=== PATIENT | male | born 1950 | race African-American/Black ===

== ENCOUNTER 2024-12-30 12:41 | Outpatient (CLI) | payer MEDICARE, SELFPAY ==
--- NOTE | ~2024-12-30 | PE_ITS ---
EXAMINATION: PET_PETPSMAST_PT DATE: 12/30/2024 14:41 INDICATION: Prostate cancer TECHNIQUE: 5.025 mCi of Illucix Ga-68([id number]) was administered i.v. Low dose computed denver graphy (CT) images were acquired from the base of the brain to the base of the brain to the proximal thighs for attenuation correction and anatomic localization. Positron emission tomography (PET) image s were acquired in the same distribution beginning 53 minutes after injection. Images including fused PET/CT images were reconstructed in axial, coronal, and sagittal planes. Automated exposure control technique was employed. The dose-length product was 1261.94mGy-cm. COMPARISON: None FINDINGS: Head/neck: Typical pattern of symmetric physiologic increased activity in the lacrimal, parotid and submandibula r glands as well as along the mucosa of the nasal and oral cavities, pharynx and hypopharynx. No path ologically enlarged cervical lymphadenopathy or suspicious foci of increased uptake in the visualized head or neck. Chest: Mild discoid atelectasis in the right middle lobe. 6 mm flat intrafissural lymph node along the right major fissure without abnormal uptake. No other suspicious pulmonary nodules, pneumonia, pulmonary e demarcus or pleural effusion. Heart size is normal. Atherosclerotic coronary artery calcifications. Posto perative change of prior median sternotomy and coronary artery bypass grafting. Nonunion of the infer ior portion of the sternotomy. Thoracic aorta is normal in caliber. No pathologically enlarged or PSM A avid thoracic lymphadenopathy. Abdomen/pelvis/proximal thighs: Physiologic renal accumulation and excretion of FDG activity in the kidneys, bladder and along portio ns of ureters. There are several bladder diverticula. Prostate measures 3.7 x 3.1 cm with focus of ap proximately 1.5 similar focus of increased uptake in the anterior gland with maximal SUV of 13.1. The re is asymmetric mild uptake near the junction of the prostate and right seminal vesicle with maximal SUV of 7.1. Normal degree and heterogenous pattern of increased uptake throughout the liver without radiologic correlate or dominant FDG avid lesion. The gallbladder, pancreas, spleen and bilateral adr enal glands are normal. Mild uptake scattered throughout the bowels without radiologic correlate, als o likely physiologic. There is moderate sigmoid predominant diverticulosis without adjacent inflammat ory change to suggest diverticulitis. Normal appendix. Small fat-containing umbilical hernia. No othe r abnormal foci of increased FDG uptake or pathologically enlarged lymphadenopathy in the abdomen, pe lvis or proximal thighs. Musculoskeletal: Moderate cervical and thoracic and severe lumbar spondylosis. No suspicious lytic, blastic or abnorma lly PSMA avid bone lesions. Couple small foci of mild uptake in the soft tissues near the right antec ubital fossa likely representing lymphatic uptake related to extravasation at the site of injection r eportedly at the right hand. IMPRESSION: 1. Prominent focus of increased uptake in the anterior prostate consistent with primary prostate canc er. Additional region of increased uptake near the confluence of the right seminal vesicle and the pr ostate and could not exclude local invasion into the seminal vesicle. 2. No other lesions suspicious for metastatic disease. Reviewed, dictated and finalized at location A. IMPRESSION: 1. Prominent focus of increased uptake in the anterior prostate consistent with primary prostate cancer. Additional region of increased uptake near the conflu ence of the right seminal vesicle and the prostate and could not exclude local invasion into the seminal vesicle. 2. No other lesions suspicious for metastatic disease.
--- OUTSIDE RECORDS SUMMARY | 2024-12-30 12:46 | XMS_ITS | Encounter Summary ---
Author Name [facility] [place] [facility] Address [address] [place] [address] Care Team Providers Care Cook [place] Name Role Phone CASTILLO JOSEPH Primary Care Provider [facility] Insurance Providers: All historical and current Section Date Range: From patient's date of to the date document was created. This section includes the names of all active insurance providers for the patient. Insurance Provider Type of Coverage Plan Name Start of Policy Coverage End of Policy Coverage Group Number Member ID Insurance Provider's Telephone Number Policy Velazquez's Name Patient's Relationship to Policy Velazquez [employer]) PRESCRIPT ION [id number] [id number] BCBSI L P Nov 29, 2017 [facility] [id number] [phone] [place] BY PATIENT MEDICARE (WNR) MEDICARE (M) PART A Jan 31, 2016 PART A [id number] [place] BY PATIENT MEDICARE (WNR) MEDICARE (M) PART B Jan 31, 2016 PART B [id number] [phone] [facility] BY PATIENT Selected Encounter This section includes the information on record at [place] for the Encounter. Date/Time Encounter Type Encounter Description Reason Provider Source Dec 23, 2024 02:30 PM [facility] FEE PRIMARY CARE/MEDICINE ICD-10-CM E11.9 Type 2 diabetes mellitus without complications CASTILLO JOSEPH Vishal Encounter Template Text not used by [place] Assessments - Encounter Diagnoses This section includes the primary and secondary diagnoses documented for the Encounter. Date/Time Primary/Secondary Diagnosis Diagnosis Name Provider Source Dec 23, 2024 03:20 PM PRIMARY Type 2 diabetes mellitus without complications CASTILLO JOSEPH [facility] Dec 23, 2024 03:20 PM SECONDARY Coronary atherosclerosis due to lipid rich plaque CASTILLO JOSEPH [facility] Dec 23, 2024 03:20 PM SECONDARY Essential (primary) hypertension CASTILLO JOSEPH [facility] Dec 23, 2024 03:20 PM SECONDARY Hyperlipidemia, unspecified CASTILLO JOSEPH [facility] Dec 23, 2024 03:20 PM SECONDARY Other specified peripheral vascular diseases CASTILLO JOSEPH [facility] Lab Results: +/- 30 days of the encounter This section includes the Chemistry and Hematology Lab Results on record with [place] for the patient. Radiology Reports and Pathology Reports are provided separately, in subsequent sections. Lab Results This section contains the Chemistry/Hematology Results that were resulted 30 days before or 30 daysafter the date of the Encounter. Date/Time Source Result Type Result - Unit Interpretation Reference Range Specimen Type Comment Dec 28, 2024 09:33 AM [facility] VITAMIN D, 25-HYDROXY SERUM Specimen Type: SERUM No comment entered. Ordering Provider: CASTILLO JOSEPH Report Released Date/Time: Dec 26, 2024 10:39 PM Reporting Lab: [facility] [address] [facility] [address] Performing Lab: [facility] [address] [facility] [address] VITAMIN D, 25-HYDROXY 58.7 ng/mL 30-96 Dec 28, 2024 09:33 AM [facility] LIPID PANEL (STL) PLASMA Specimen Type: PLASM A Comment: No hemolysis noted. Ordering Provider: CASTILLO JOSEPH Report Released Date/Time: Dec 26, 2024 10:39 PM Reporting Lab: [facility] [address] [facility] [address] Performing Lab: [facility] [address] [facility] [address] CHOLESTEROL 169 mg/dL 0-200 TRIGLYCERIDE 102 mg/dL 0-150 CALCULATED LDL 108 mg/dL HDL(New) 41 mg/dL >40 Dec 28, 2024 09:33 AM [facility] COMPREHENSIVE METABOLIC PANEL PLASMA Specimen Type: PLASMA Comment: No hemolysis noted. Ordering Provider: CASTILLO JOSEPH Report Released Date/Time: Dec 26, 2024 10:39 PM Reporting Lab: [address] [address] Performing Lab: [address] [address] CREATININE 1.01 mg/dL 0.7-1.3 UREA NITROGEN 12.6 mg/dL 9.0-25.0 GLUCOSE 141 mg/dL H 72-99 SODIUM 138 meq/L 136-145 POTASSIUM 4.2 meq/L 3.5-5 CHLORIDE 105 meq/L 98-107 CARBON DIOXIDE 18 meq/L L 22-31 CALCIUM 9.7 mg/dL 8.4-10.4 PROTEIN 7.6 g/dL 6-8.6 ALBUMIN 3.9 g/dL 3.4-5 TOTAL BILIRUBIN 0.8 mg/dL 0.2-1.2 ALKALINE PHOSPHATASE 92 U/L 40-150 AST/SGOT 50 U/L H 5-34 ALT/SGPT 12 U/L 8-40 EGFR (CKD-EPI 2020) 79.0 >60 Dec 28, 2024 09:33 AM [facility] TSH (MA-PB) SERUM Specimen Type: SERUM No comment entered. Ordering Provider: CASTILLO JOSEPH Report Released Date/Time: Dec 26, 2024 10:39 PM Reporting Lab: [facility] [address] [facility] [address] Performing Lab: [address] [address] TSH 1.472 u[IU]/mL 0.47-5 Dec 28, 2024 09:33 AM [facility] HGA1C BLOOD Specimen Type: BLOOD No comment entered. Ordering Provider: CASTILLO JOSEPH Report Released Date/Time: Dec 26, 2024 10:39 PM Reporting Lab: [facility] [address] [facility] [address] Performing Lab: [place] [address] [facility] [address] HGA1C 7.5 H 4.0-6.0 Dec 28, 2024 09:33 AM [facility] CBC BLOOD Specimen Type: BLOOD No comment entered. Ordering Provider: CASTILLO JOSEPH Report Released Date/Time: Dec 26, 2024 10:39 PM Reporting Lab: [place] [address] [address] [facility] [address] Performing Lab: [address] [address] WBC 9.0 10*3/uL 3.6-11.2 RBC 4.81 10*6/uL 4.10-5.70 HGB 14.4 g/dL 13.1-16.8 HCT 46.2 38.2-48.4 MCV 96.0 fL 80.0-100.0 MCH 29.9 pg 27.0-34.0 MCHC 31.2 g/dL L 33.0-36.0 PLT 401 10*3/uL H 150-400 MPV 10.5 fL 7.5-11.2 RDW 13.2 11.8-15.1 LYMPHOCYTES, AUTO % 41 MONOCYTES, AUTO % 8 NEUTROPHILS, AUTO % 48 EOSINOPHILS, AUTO % 3 BASOPHILS, AUTO % 0 LYMPHOCYTES, ABSOLUTE 3.64 10*3/uL 0.77- 4.50 MONOCYTES, ABSOLUTE 0.73 10*3/uL 0.19-0. 80 NEUTROPHILS, ABSOLUTE 4.31 10*3/uL 2.10- 8.00 EOSINOPHILS, ABSOLUTE 0.22 10*3/uL 0.00- 0.60 BASOPHILS, ABSOLUTE 0.03 10*3/uL 0.00-0. 20 Dec 23, 2024 02:45 PM [facility] GLUCOSE,BLOOD-poct (STL) BLOOD Specimen Type: BLOOD Comment: Test Performed by: [id number] Meter #: [id number] Ordering Provider: CASTILLO JOSEPH Report Released Date/Time: Dec 23, 2024 03:48 PM Reporting Lab: [facility] [facility] [address] Performing Lab: [facility] [address] [place] [address] GLUCOSE,BLOOD-poct (STL) 118 mg/dL H 72-99 Vital Signs: All taken on the encounter date This section contains inpatient and outpatient Vital Signs collected on the date of the Encounter. Date/Time Temperature Pulse Blood Pressure Respiratory Rate SP02 Pain Height Weight Body Mass Index Source Dec 23, 2024 02:52 PM 128/78 mm[Hg] [facility] Dec 23, 2024 02:47 PM 98.6 F 75 /min 151/74 mm[Hg] 18 /min 96 % 0 76 in 233 lb 28 [facility] Social History: Smoking Status (Most current) and Tobacco Use (All prior to encounter date) This section includes the most current, and the historical, smoking and tobacco- related health factors from the [place] facility where the Encounter took place. Current Smoking Status This section includes the most current smoking, or tobacco-related health factor, from the [place] facility where the Encounter took place. Date/Time Current Smoking Status Comment Facil ity Nov 06, 2020 10:30 AM [place]-TOBACCO FORMER USER [facility] Tobacco Use History This section includes a history of the smoking, or tobacco-related health factors, that were collected on or before the date of the Encounter. The data comes from the [place] facility where the Encounter took place. Date/Time Smoking Status/Tobacco Use Comment F acility Nov 06, 2020 10:30 AM [place]-TOBACCO QUIT 5 TO < 15 YRS [facility] Encounter Notes: All associated encounter notes This section contains the clinical notes associated to the Encounter. Date/Time Encounter Note(s) Provider Source Dec 23, 2024 02:48 PM NURSING NOTE: LOCAL TITLE: V15 PACT FACE TO FACE NOTE STL STANDARD TITLE: NURSING NOTE DATE OF NOTE: DEC 23, 2024@14:48 ENTRY DATE: DEC 23, 2024@14:48:10 AUTHOR: MILLA WYNN COSIGNER: URGENCY: STATUS: COMPLETED Provider Visit: Patient Identifiers : Full Name Date of Reason for visit: Established Follow-Up 74 year old male. Pt is alert and ambulatory. Pt is able to make his needs known and has no complaints of pain. Pt states he has no new health concerns. Mode of Arrival: Assistive Device: cane Allergy Review: ALLERGIES/ADVERSE REACTIONS - NONE FOUND Allergy list reviewed and remains current. Recent Vital Signs: Temperature: 98.6 F [37.0 C] (12/23/2024 14:47) Pulse: 75 (12/23/2024 14:47) Respiration: 18 (12/23/2024 14:47) B/P: 151/74 (12/23/2024 14:47) Pain: 0 (12/23/2024 14:47) Wt.: 233 lb. [105.69 kg] (12/23/2024 14:47) Ht: 76 in [193.0 cm] (12/23/2024 14:47) BMI: 28.4 POX: 96% (12/23/2024 14:47) Blood sugar glucometer readin PERSONAL HEALTH INVENTORY Notes: No data available for PHI note titles PERSONAL HEALTH INVENTORY - MAP: Personal Health Inventory (Short) 05/21/2018 Phis What Do You Live For waking up every morning brings me carlitos [facility] 05/09/2021 Personal Health Plan [place], Aspiration, Purpose (MAP) Everything 11/06/2020 Personal Health Plan [place], Aspiration, Purpose (MAP) seeing my grandkids What matters most to you in your life right now? - [place]'s Response: nothing to say WHOLE HEALTH SHARED GOALS: PERSONAL HEALTH PLAN - SHARED GOALS: 05/09/2021 [facility] Shared Goals Just keep me my medications 11/06/2020 [facility] Shared Goals 1.2 million SHARED GOALS nothing to say Would you like to discuss any personal problem, family problem, alcohol use, drug use, or a mental or emotional illness? No My [facility] ([facility]), please select appointment type: Face to face: Yes-Do you have an upgraded (Premium) account which gives you the added benefit of Secure Messaging with your Primary Care Provider and refilling your prescriptions online? Contact provided Primary Care phone number and encouraged to call if any questions or concerns. Review that after hours nurse line [phone] and emergency room are available 22/12 for patient use. Contact verbalized good understanding. Sexual Orientation - CP,L,N,P,PH,PS,S,U: The patient thinks of their sexual orientation as: Straight or Heterosexual Depression Screening - V: Perform PHQ-2 A PHQ-2 screen was performed. The score was 0 which is a negative screen for depression. Over the past two weeks, how often have you been bothered by the following problems? 1. Little interest or pleasure in doing things Not at all 2. Feeling down, depressed, or hopeless Not at all PTSD Screening - V: PC-PTSD-5 A PTSD screening test (PC-PTSD-5) was negative (score=0). Sometimes things happen to people that are unusually or especially frightening, horrible or traumatic. For example: A serious accident or fire a physical or sexual assault or abuse An earthquake or flood A war Seeing someone be killed or seriously injured Having a loved one through homicide or suicide 1. Have you ever experienced this kind of event? NO 2. Had nightmares about the event(s) or thought about the event(s) when you did not want to? Response not required due to responses to other questions. 3. Tried hard not to think about the event(s) or went out of your way to avoid situations that reminded you of the event(s)? Response not required due to responses to other questions. 4. Been constantly on guard, watchful, or easily startled? Response not required due to responses to other questions. 5. [place] numb or detached from people, activities, or your surroundings? Response not required due to responses to other questions. 6. [place] guilty or unable to stop blaming yourself or others for the event(s) or any problems the event(s) may have caused? Response not required due to responses to other questions. Herpes Zoster (Shingles) Vaccine - L,N,P,PH,U: The patient declines to receive the recommended dose of zoster (shingles) vaccine. Immunization: ZOSTER RECOMBINANT Refusal Reason: PATIENT DECISION Patient refuses all immunization(s) in the ZOSTER group Date Documented: 12/23/24 14:51 Suicide Screen - V: C-SSRS Screening [place] Suicide Severity Rating Scale (C-SSRS) screener 1. Over the past month, have you wished you were or wished you could go to sleep and not wake up? No 2. Over the past month, have you had any actual thoughts of killing yourself? No 3. Over the past month, have you been thinking about how you might do this? Response not required due to responses to other questions. 4. Over the past month, have you had these thoughts and had some intention of acting on them? Response not required due to responses to other questions. 5. Over the past month, have you started to work out or worked out the details of how to kill yourself? Response not required due to responses to other questions. 6. If yes, at any time in the past month did you intend to carry out this plan? Response not required due to responses to other questions. 7. In your lifetime, have you ever done anything, started to do anything, or prepared to do anything to end your life (for example, collected pills, obtained a gun, gave away valuables, went to the roof but didn't jump)? No 8. If YES, was this within the past 3 months? Response not required due to responses to other questions. HTN Assess for Elevated BP>=140/90 - N,P,PH: Repeat blood pressure: 128/78 PC [facility] MAP: PERSONAL HEALTH PLAN PAVE Foot Check - L,N,P,PH,PO,PT,U: A complete foot check was completed at this encounter. VISUAL INSPECTION: Includes inspection for skin breaks, deformity, erythema, trauma, pallor on elevation, dependent rubor, nail deformities, extensive callus and pitting edema. Visual exam results: Normal Comment: normal PEDAL PULSES: Includes palpation of dorsalis and posterior tibial pulses and signs/symptoms of vascular compromise like pain, pallor, paresthesia or paralysis. Present (even if diminished) Comment: present SENSORY CHECK: Includes 10 gram Monofilament ([place]) test of sensation. Intact (Greater than or equal to 80% of sites checked) Abnormal (Less than 80% of sites checked): Intact Comment: intact LOW-RISK: LOW RISK INFORMATION PROVIDED: 1. Advised patient not to walk barefoot. 2. Explained the importance of daily foot checks for changes. 3. Stressed the importance of daily foot hygiene, including bathing and complete drying. The patient verbalized understanding and was offered a detailed handout on diabetic foot care. /nicholas/ MILLA WYNN Licensed Practical Nurse Signed: 12/23/2024 15:04 MILLA WYNN [facility]
--- OUTSIDE RECORDS SUMMARY | 2024-12-30 12:46 | XMS_ITS | Referral Summary ---
Author Organization [facility] Care Team Providers Care Jointer Operator Name Role Phone Skip Wood MD Primary Care Provide r Allergies No known active allergies Social History Tobacco Use Types Packs/Day Years Used Date Smoking Tobacco: Never Assessed Personal Safety Answer Date Recorded Getting School Help Needed Not on file 08/01 Sex and Gender Information Value Date Recorded Sex Assigned at Not on file Legal Sex Male 8:05 AM CDT Gender Identity Not on file Sexual Orientation Not on file Plan of Treatment Not on file Insurance AET MEDICARE Care Teams Jointer Operator Relationship Specialty Start Date End Date Skip Wood MD [address] [address] PCP - General Internal Medicine 07/23/22
--- OUTSIDE RECORDS SUMMARY | 2024-12-30 12:46 | XMS_ITS ---
Author Name [facility] [place] [place] Organization [facility] [place] Address [address] [place] [address] Care Team Providers Care Postal Delivery Officer Name Role Phone CASTILLO JOSEPH Primary Care Provider [facility] Insurance Providers: All historical and [...] EGWP BCBSI L P Nov 29, 2017 [id number] [phone] [place] BY PATIENT MEDICARE (WNR) MEDICARE (M) PART A Jan 31, 2016 PART A [id number] [place] BY PATIENT MEDICARE (WNR) MEDICARE (M) PART B Jan 31, 2016 PART B [id number] [phone] [facility] [facility] BY PATIENT Selected Encounter This section includes the information on record at [place] for the Encounter. Date/Time Encounter Type Encounter Description Reason Provider Source Mar 10, 2024 01:30 PM DEBRIDE NAIL 6 OR MORE PODIATRY ICD-10-CM B35.1 Tinea unguium IRAIDA BLAND Encounter Template Text not used by [place] Assessments - Encounter Diagnoses This section includes the primary and secondary diagnoses documented for the Encounter. Date/Time Primary/Secondary Diagnosis Diagnosis Name Provider Source Mar 10, 2024 02:09 PM PRIMARY Tinea unguium [facility] Mar 10, 2024 02:09 PM SECONDARY Other hammer toe(s) (acquired), left foot [facility] Mar 10, 2024 02:09 PM SECONDARY Other hammer toe(s) (acquired), right foot [facility] Mar 10, 2024 02:09 PM SECONDARY Peripheral vascular disease, unspecified [facility] Mar 10, 2024 02:09 PM SECONDARY Type 2 diabetes mellitus with unspecified complications [facility] Social History: Smoking Status (Most current) and Tobacco Use (All prior to encounter date) This section includes the most current, and the historical, smoking and tobacco- related health factors from the [place] facility where the Encounter took place. Current Smoking Status This section includes the most current smoking, or tobacco-related health factor, from the [place] facility where the Encounter took place. Date/Time Current Smoking Status Comment Kofi lim Nov 04, 2021 04:10 PM [place]-TOBACCO FORMER USER [facility] Tobacco Use History This section includes a history of the smoking, or tobacco-related health factors, that were collected on or before the date of the Encounter. The data comes from the [place] facility where the Encounter took place. Date/Time Smoking Status/Tobacco Use Comment F actaylor Nov 04, 2021 04:10 PM [place]-TOBACCO QUIT 15 YRS OR MORE [facility] Nov 22, 2019 10:13 AM [place]-TOBACCO FORMER USER [facility] Nov 22, 2019 10:13 AM [place]-TOBACCO QUIT 5 TO < 15 [address] [facility] Encounter Notes: All associated encounter notes This section contains the clinical notes associated to the Encounter. Date/Time Encounter Note(s) Provider Source Mar 10, 2024 01:27 PM PODIATRY NOTE: LOCAL TITLE: PODIATRY NOTE STANDARD TITLE: PODIATRY NOTE DATE OF NOTE: MAR 10, 2024@13:27 ENTRY DATE: MAR 10, 2024@13:27:23 AUTHOR: KAYLEIGH BLAND EXP COSIGNER: URGENCY: STATUS: COMPLETED S: PT PRESENTS TO CLINIC TODAY WITH CHIEF COMPLAINT OF ELONGATED NAILS. PT DENIES ANY SYSTEMIC SIGNS OF INFECTION RECENT TRAUMA. PT IS DIABETIC AND IS FOLLOWED BY HIS PCP FOR HIS DM. PT IS COOPERATIVE UPON EXAM. HE STATES HE JUST GOT SHOES AND DOES NOT NEED THEM. SYMPTOMS WORSENDED BY: NO DEBRIDEMENT SYMTOMS IMPROVED BY: DEBRIDEMENT PAIN SCALE: 0/10. HGA1C:HGA1C 7.0 H % 05/22 ALLERGIES:Patient has answered NKA O: PT IS ALERT AND ORIENTED X 3 AND IN NAD. HE IS AMBULATING WITH THE ASSISTANCE OF A CANE. HE IS WEARING HIS PERSONAL SHOES ON EXAM. VASC: PALPABLE PULSES HOWEVER DECREASED. NO ISCHEMIC CHANGES NOTED ON EXAM. CAPP REFILL LESS THAN 3 SECONDS. SCANT DIGITAL HAIR GROWTH NOTED. FEET ARE WARM TO TOUCH. NEURO: GROSSLY INTACT, PROTECTIVE LIGHT SENSATION INTACT PER SEMMES NATE 5.07 MONOFILAMENT TO ALL SITES TESTED B/L. DERM: NAILS THICKENED DYSTROPHIC AND MYCOTIC X 10 AND ELONGATED X 10. NO ASCENDING CELLULITIS. NO ERYTHAMA, NO DRAINAGE, AND NO OPEN WOUNDS NOTED ON EXAM. MUS/SK: GOOD MUSCLE STRENGTH IN ALL 4 QUADRANTS. NO DELL NOTED IN THE ACHILLES. ROM AT THE ANKLE AND STJ WITHIN NORMAL LIMITS. UPON STANCE PT HAS THICK FEET WITH NO SWELLING ON THIS EXAM AND MILD HAMMERING OF THE DIGITS 2-5 B/L WITH TOES SPLAYING. GURPREET: VASCULAR LABORATORY: EXERCISE GURPREET EXAMINATION RIGHT LEFT GURPREET: 0.93 GURPREET: 0.71 TOE PRESSURES (mm Hg) RIGHT: 76 LEFT: 62 IMPRESSION:normal resting gurpreet on the right. moderate arterial insufficienyc on the left. there is an abnormal response to exercise testing bilaterally consistent with symptoms of claudicaiton A/P 1 ONYCHOMYCOSIS/ PT EDUCATION TO ONLY FILE HIS NAILS. MANUALLY DEBRIDED X 10. BETADINE APPLIED ROUTINELY. 2 DM/ PT EDUCATION. PT TO F/U WITH PCP. 3 PVD/ PT ADVISED TO MONITOR HIS SHOES AND INSERTS AND WEAR WITH PRECAUTIONS. 4 MILD HAMMER TOES B/L/ PT ADVISED OF NEED FOR HIS RX EXTRA DEPTH SHOES AND CUSTOM MADE INSERTS WITH PRECAUTIONS. PT TO RTC FOR F/U 6 MONTHS PER PATIENT REQUEST. DISCUSSED TREATMENT OPTIONS WITH PATIENT AND PATIENT ADVISED TO GO TO THE ER IF ANY INCREASE IN PAIN REDNESS OR ERYTHEMA IS NOTED. PT STATES UNDERSTANDING. MEDICATION/RECONCILLIATIO N: REVIEWED AND RECONCILLED ALL PODIATRIC GENERATED MEDICATIONS. PER [place] DIRECTIVE 1122 PT IS CONSIDERED TO BE MODERATE TO HIGH RISK. /nicholas/ KAYLEIGH BLAND Staff Physician, Podiatry Signed: 03/10/2024 14:09 KAYLEIGH BLAND [facility]
--- OUTSIDE RECORDS SUMMARY | 2024-12-30 12:46 | XMS_ITS | Continuity of Care Document ---
Author Name [facility] Organization [facility] Care Team Providers Care Children'S Aide Name Role Phone [facility] Unavailable Unavailable Problems Combined list of problems from Department of [facility] and [facility] facilities. It does not include entries that were removed or entered in error. Problem Status Onset Date Problem Type Date of Resolution Comments Source Benign essential hypertension Active Condition [facility] Cannabis dependence Active Condition [facility] Coronary atherosclerosis Active Condition [facility] Diabetes mellitus Active Condition [facility] Elevated PSA Active Condition [facility] Hyperlipidemia [facility] Low Back Pain ([facility] [id number]) Active Condition [facility] Onychomycosis of toenails Active Condition [facility] Past history of procedure Active Condition October 26, 2020 Entered By: EDWARD BRADSHAW Comment: 12/2013 coronary artery bypass grafting four vesselOctober 26, 2020 Entered By: EDWARD BRADSHAW Comment: 2004 left knee surgeryNov 06, 2020 Entered By: EDWARD BRADSHAW Comment: 2013 oral surgery (dentures)Jul 03, 2022 Entered By: SALAZAR GUERRERO Comment: Colonoscopy, Dr Posada, [place], 05/05/22, diverticulosis [facility] Patient Overweight (SCT [id number]) Active Condition [facility] Peripheral vascular disease Active Condition [facility] Vitamin D Deficiency ([facility] [id number]) Active Condition [facility] Diagnosis: ICD-10-CM E11.9 Type 2 diabetes mellitus without complications Active Diagnosis [facility] Diagnosis: ICD-10-CM B35.1 Tinea unguium Active Diagnosis [facility] Medications Combined list of outpatient medications from Department of [facility] and [facility] facilities.Medications provided include 1) outpatient medications from the last 15 months, and 2) patient-reported medications. Medication Details Route Status Patient Instructions Prescription Expires Prescription Number Last Dispense Date Ordering Provider Order Date Order Qty Source ASPIRIN 325MG TAB,EC TAKE ONE TABLET BY MOUTH ONCE A DAY FOR CARDIOVA SCULAR DISEASE TAKE WITH FOOD. ORAL ACTIVE 02/24/2025 [id number] DORINDA KHAN 2023 100 [facility] ASPIRIN 325MG TAB,EC TAKE ONE TABLET BY MOUTH ONCE A DAY FOR HEART OR CIRCULAT ION. TAKE WITH FOOD. ORAL 12/24/2023 [id number] 4 CESARGA TTISA 2022 100 [facility] CARVEDILOL 12.5MG TAB TAKE ONE-HALF TABLET BY MOUTH TWICE A DAY FOR HEART. TAKE WITH FOOD. ORAL ACTIVE 01/11/2025 [id number] 5 CESARGA TTISA 2023 90 [facility] CARVEDILOL 12.5MG TAB TAKE ONE-HALF TABLET BY MOUTH TWICE A DAY FOR HEART. TAKE WITH FOOD. ORAL DISCONT INUED 12/24/2023 [id number] 4 CESARGA TTISA 2022 90 [facility] CHOLECALCIF ANDREI 50MCG (2,000UNIT) TAB TAKE ONE TABLET BY MOUTH ONCE A DAY FOR VITAMIN D DEFICIEN CY. ORAL 12/28/2024 [id number] 4 CESARGA TTISA 2023 100 [facility] CILOSTAZOL 50MG TAB TAKE ONE TABLET BY MOUTH TWICE A DAY TAKE 30 MINUTES BEFORE OR AT LEAST 2 HOURS AFTER FOOD. DO NOT TAKE WITH GRAPEFRU IT JUICE. ORAL 11/30/2024 [id number] 5 SHERI BRADSHAW 2023 180 [facility] GLIPIZIDE 5MG TAB TAKE ONE-HALF TABLET BY MOUTH TWO TIMES A DAY BEFORE MEALS FOR DIABETES . TAKE 30 MINUTES BEFORE EATING. ORAL ACTIVE 02/24/2025 [id number] 4 ME CESAR TTISA 2023 90 [facility] METFORMIN HCL 1000MG TAB TAKE ONE TABLET BY MOUTH TWICE A DAY WITH MEALS FOR BLOOD SUGAR CONTROL. TAKE WITH FOOD. AVOID ALCOHOL. DISCONTI NUE BEFORE GETTING XRAY DYE. ORAL 07/22/2024 [id number] 4 PACE,VICT OR M 2023 180 [facility] Immunizations Combined list of available immunizations from the Department of Defense and Veterans Affairs facilities. Immunization Series Date Given Administered By Site Reaction Lot Number CVX Code Drug [place] [facility] Dem[facility]ator Status Comments Source INFLUENZA, UNSPECIFIED FORMULATION 2021 88 complet ed Completed Series, HISTORICA L INFORMATI ON - FROM [facility], [facility] COVID-19 (MODERNA), MRNA, LNP-S, PF, 100 MCG/0.5ML DOSE OR 50 MCG/0.25ML DOSE 4 2021 NONE 207 complet ed MOD; [id number]; 2 [facility] COVID-19 (PFIZER), MRNA, LNP-S, PF, 30 MCG/0.3 ML DOSE 3 2020 208 complet ed [facility] COVID-19 (PFIZER), MRNA, LNP-S, PF, 30 MCG/0.3 ML DOSE 2 2020 208 complet ed PFR; [id number]; 1 [facility] COVID-19 (PFIZER), MRNA, LNP-S, PF, 30 MCG/0.3 ML DOSE 1 2020 208 complet ed PFR; [id number]; 1 [facility] Results Combined list of recent chemistry, hematology and other laboratory results from Department of Defense and Veterans Affairs, ranging from 15 months to all on record, depending upon the facility. Order Name Results Value Reference Range Date Interpretation Specimen Comments Source VITAMIN D, 25-HYDROXY 25-HYDROXYV ITAMIN D3 [MASS/VOLUM E] IN SERUM OR PLASMA 58.7 ng/mL 30 - 96 12/28 Specimen Type: SERUM No comment entered. Ordering Provider: YEHUDA JOSEPH RA Report Released Date/Time: Dec 26, 2024 10:39 PM Reporting Lab: [address] [address] Performing Lab: [facility] [address] [place] [address] [facility] LIPID PANEL (STL) CHOLESTEROL [MASS/VOLUM E] IN SERUM OR PLASMA 169 mg/dL 0 - 200 12/28 Specimen Type: PLASMA Comment: No hemolysis noted. Ordering Provider: YEHUDA JOSEPH RA Report Released Date/Time: Dec 26, 2024 10:39 PM Reporting Lab: [address] [address] Performing Lab: [address] [address] [facility] LIPID PANEL (STL) TRIGLYCERID E [MASS/VOLUM E] IN SERUM OR PLASMA 102 mg/dL 0 - 150 12/28 Specimen Type: PLASMA Comment: No hemolysis noted. Ordering Provider: YEHUDA JOSEPH RA Report Released Date/Time: Dec 26, 2024 10:39 PM Reporting Lab: [address] [address] Performing Lab: [address] [address] [facility] LIPID PANEL (STL) CHOLESTEROL IN LDL [MASS/VOLUM E] IN SERUM OR PLASMA BY CALCULATION 108 mg/dL 12/28 Specimen Type: PLASMA Comment: No hemolysis noted. Ordering Provider: YEHUDA JOSEPH RA Report Released Date/Time: Dec 26, 2024 10:39 PM Reporting Lab: [address] [address] Performing Lab: [address] [address] [facility] LIPID PANEL (STL) CHOLESTEROL IN HDL [MASS/VOLUM E] IN SERUM OR PLASMA 41 mg/dL 40 12/28 Specimen Type: PLASMA Comment: No hemolysis noted. Ordering Provider: YEHUDA JOSEPH RA Report Released Date/Time: Dec 26, 2024 10:39 PM Reporting Lab: [address] [address] Performing Lab: [address] [address] [facility] TSH (MA-PB) THYROTROPIN [UNITS/VOLU ME] IN SERUM OR PLASMA 1.472 u[IU]/ mL 0.47 - 5 12/28 Specimen Type: SERUM No comment entered. Ordering Provider: YEHUDA JOSEPH RA Report Released Date/Time: Dec 26, 2024 10:39 PM Reporting Lab: [address] [address] Performing Lab: [address] [phone] [place] [address] HGA1C HEMOGLOBIN A1C/HEMOGLO BIN.TOTAL IN BLOOD 7.5 4.0 - 6.0 12/28 H Specimen Type: BLOOD No comment entered. Ordering Provider: YEHUDA JOSEPH RA Report Released Date/Time: Dec 26, 2024 10:39 PM Reporting Lab: [address] [address] Performing Lab: [address] [address] [facility] COMPREHENS PHILLIP METABOLIC PANEL CREATININE [MASS/VOLUM E] IN SERUM OR PLASMA 1.01 mg/dL 0.7 - 1.3 12/28 Specimen Type: PLASMA Comment: No hemolysis noted. Ordering Provider: YEHUDA JOSEPH RA Report Released Date/Time: Dec 26, 2024 10:39 PM Reporting Lab: [address] [address] Performing Lab: [address] [address] [facility] COMPRE[facility]ENS [facility] METABOLIC PANEL UREA NITROGEN [MASS/VOLUM E] IN SERUM OR PLASMA 12.6 mg/dL 9.0 - 25.0 12/28 Specimen Type: PLASMA Comment: No hemolysis noted. Ordering Provider: YEHUDA JOSEPH RA Report Released Date/Time: Dec 26, 2024 10:39 PM Reporting Lab: [place] [address] [address] [facility] [address] Performing Lab: [place] [address] [facility] [address] [facility] COMPREHENS [facility]ILLIP METABOLIC PANEL GLUCOSE [MASS/VOLUM E] IN SERUM OR PLASMA 141 mg/dL 72 - 99 12/28 H Specimen Type: PLASMA Comment: No hemolysis noted. Ordering Provider: YEHUDA JOSEPH RA Report Released Date/Time: Dec 26, 2024 10:39 PM Reporting Lab: [address] [address] Performing Lab: [place] [address] [facility] [address] [facility] COMPREHENS PHILLIP METABOLIC PANEL SODIUM [MOLES/VOLU ME] IN SERUM OR PLASMA 138 meq/L 136 - 145 12/28 Specimen Type: PLASMA Comment: No hemolysis noted. Ordering Provider: YEHUDA JOSEPH RA Report Released Date/Time: Dec 26, 2024 10:39 PM Reporting Lab: [address] [address] Performing Lab: [place] [address] [facility] [address] [facility] COMPREH[facility]ILLIP METABOLIC PANEL POTASSIUM [MOLES/VOLU ME] IN SERUM OR PLASMA 4.2 meq/L 3.5 - 5 12/28 Specimen Type: PLASMA Comment: No hemolysis noted. Ordering Provider: YEHUDA JOSEPH RA Report Released Date/Time: Dec 26, 2024 10:39 PM Reporting Lab: [place] [address] [facility] [address] Performing Lab: [address] [place] [address] [facility] COMPREHENS PHILLIP METABOLIC PANEL CHLORIDE [MOLES/VOLU ME] IN SERUM OR PLASMA 105 meq/L 98 - 107 12/28 Specimen Type: PLASMA Comment: No hemolysis noted. Ordering Provider: YEHUDA JOSEPH RA Report Released Date/Time: Dec 26, 2024 10:39 PM Reporting Lab: [address] [address] Performing Lab: [place] [address] [facility] [address] [facility] COM[facility] METABOLIC PANEL CARBON DIOXIDE, TOTAL [MOLES/VOLU ME] IN SERUM OR PLASMA 18 meq/L 22 - 31 12/28 L Specimen Type: PLASMA Comment: No hemolysis noted. Ordering Provider: YEHUDA JOSEPH RA Report Released Date/Time: Dec 26, 2024 10:39 PM Reporting Lab: [address] [address] Performing Lab: [place] [address] [facility] [address] [facility] COMPREHENS PHILLIP METABOLIC PANEL CALCIUM [MASS/VOLUM E] IN SERUM OR PLASMA 9.7 mg/dL 8.4 - 10.4 12/28 Specimen Type: PLASMA Comment: No hemolysis noted. Ordering Provider: YEHUDA JOSEPH RA Report Released Date/Time: Dec 26, 2024 10:39 PM Reporting Lab: [place] [address] [facility] [address] Performing Lab: [address] [address] [facility] COMPREHENS PHILLIP METABOLIC PANEL PROTEIN [MASS/VOLUM E] IN SERUM OR PLASMA 7.6 g/dL 6 - 8.6 12/28 Specimen Type: PLASMA Comment: No hemolysis noted. Ordering Provider: YEHUDA JOSEPH RA Report Released Date/Time: Dec 26, 2024 10:39 PM Reporting Lab: [address] [place] [address] Performing Lab: [place] [address] [facility] [address] [facility] COMPREHENS PHILLIP METABOLIC PANEL ALBUMIN [MASS/VOLUM E] IN SERUM OR PLASMA 3.9 g/dL 3.4 - 5 12/28 Specimen Type: PLASMA Comment: No hemolysis noted. Ordering Provider: YEHUDA JOSEPH RA Report Released Date/Time: Dec 26, 2024 10:39 PM Reporting Lab: [place] [address] [facility] [address] Performing Lab: [address] [phone] COMPREHENS PHILLIP METABOLIC PANEL BILIRUBIN.T OTAL [MASS/VOLUM E] IN SERUM OR PLASMA 0.8 mg/dL 0.2 - 1.2 12/28 Specimen Type: PLASMA Comment: No hemolysis noted. Ordering Provider: YEHUDA JOSEPH RA Report Released Date/Time: Dec 26, 2024 10:39 PM Reporting Lab: [address] [address] Performing Lab: [place] [address] [facility] [address] [facility] COMPREHENS PHILLIP METABOLIC PANEL ALKALINE PHOSPHATASE [ENZYMATIC ACTIVITY/VO LUME] IN SERUM OR PLASMA 92 U/L 40 - 150 12/28 Specimen Type: PLASMA Comment: No hemolysis noted. Ordering Provider: YEHUDA JOSEPH RA Report Released Date/Time: Dec 26, 2024 10:39 PM Reporting Lab: [address] [address] Performing Lab: [address] [address] [facility] COMPREHENS PHILLIP METABOLIC PANEL ASPARTATE AMINOTRANSF ERASE [ENZYMATIC ACTIVITY/VO LUME] IN SERUM OR PLASMA 50 U/L 5 - 34 12/28 H Specimen Type: PLASMA Comment: No hemolysis noted. Ordering Provider: YEHUDA JOSEPH RA Report Released Date/Time: Dec 26, 2024 10:39 PM Reporting Lab: [address] [address] Performing Lab: [address] [address] [facility] COMPREHENS PHILLIP METABOLIC PANEL ALANINE AMINOTRANSF ERASE [ENZYMATIC ACTIVITY/VO LUME] IN SERUM OR PLASMA 12 U/L 8 - 40 12/28 Specimen Type: PLASMA Comment: No hemolysis noted. Ordering Provider: YEHUDA JOSEPH RA Report Released Date/Time: Dec 26, 2024 10:39 PM Reporting Lab: [address] [address] Performing Lab: [address] [phone] [place] [address] COMPREHENS PHILLIP METABOLIC PANEL GLOMERULAR FILTRATION RATE/1.73 SQ M.PREDICTED [VOLUME RATE/AREA] IN SERUM, PLASMA OR BLOOD BY CREATININE- BASED FORMULA (CKD-EPI 2020) 79.0 60 12/28 Specimen Type: PLASMA Comment: No hemolysis noted. Ordering Provider: YEHUDA JOSEPH RA Report Released Date/Time: Dec 26, 2024 10:39 PM Reporting Lab: [address] [address] Performing Lab: [address] [address] [facility] CBC LEUKOCYTES [#/VOLUME] IN BLOOD BY AUTOMATED COUNT 9.0 10*3/u L 3.6 - 11.2 12/28 Specimen Type: BLOOD No comment entered. Ordering Provider: YEHUDA JOSEPH RA Report Released Date/Time: Dec 26, 2024 10:39 PM Reporting Lab: [address] [address] Performing Lab: [address] [address] [facility] CBC ERYTHROCYTE S [#/VOLUME] IN BLOOD BY AUTOMATED COUNT 4.81 10*6/u L 4.10 - 5.70 12/28 Specimen Type: BLOOD No comment entered. Ordering Provider: YEHUDA JOSEPH RA Report Released Date/Time: Dec 26, 2024 10:39 PM Reporting Lab: [address] [address] Performing Lab: [address] [address] [facility] HEMOGLOBIN [MASS/VOLUM E] IN BLOOD 14.4 g/dL 13.1 - 16.8 12/28 Specimen Type: BLOOD No comment entered. Ordering Provider: YEHUDA JOSEPH RA Report Released Date/Time: Dec 26, 2024 10:39 PM Reporting Lab: [address] [address] Performing Lab: [address] [facility] HEMATOCRIT [VOLUME FRACTION] OF BLOOD 46.2 38.2 - 48.4 12/28 Specimen Type: BLOOD No comment entered. Ordering Provider: YEHUDA JOSEPH RA Report Released Date/Time: Dec 26, 2024 10:39 PM Reporting Lab: [address] [address] Performing Lab: [address] [phone] [place] [address] CBC MCV [ENTITIC VOLUME] BY AUTOMATED COUNT 96.0 fL 80.0 - 100.0 12/28 Specimen Type: BLOOD No comment entered. Ordering Provider: YEHUDA JOSEPH RA Report Released Date/Time: Dec 26, 2024 10:39 PM Reporting Lab: [address] [address] Performing Lab: [address] [address] [facility] CBC MCH [ENTITIC MASS] BY AUTOMATED COUNT 29.9 pg 27.0 - 34.0 12/28 Specimen Type: BLOOD No comment entered. Ordering Provider: YEHUDA JOSEPH RA Report Released Date/Time: Dec 26, 2024 10:39 PM Reporting Lab: [address] [address] Performing Lab: [address] [address] [facility] CBC MCHC [MASS/VOLUM E] BY AUTOMATED COUNT 31.2 g/dL 33.0 - 36.0 12/28 L Specimen Type: BLOOD No comment entered. Ordering Provider: YEHUDA JOSEPH RA Report Released Date/Time: Dec 26, 2024 10:39 PM Reporting Lab: [address] [address] Performing Lab: [address] [phone] [place] [address] CBC PLATELETS [#/VOLUME] IN BLOOD BY AUTOMATED COUNT 401 10*3/u L 150 - 400 12/28 H Specimen Type: BLOOD No comment entered. Ordering Provider: YEHUDA JOSEPH RA Report Released Date/Time: Dec 26, 2024 10:39 PM Reporting Lab: [address] [address] Performing Lab: [address] [address] [facility] CBC PLATELET MEAN VOLUME [ENTITIC VOLUME] IN BLOOD BY AUTOMATED COUNT 10.5 fL 7.5 - 11.2 12/28 Specimen Type: BLOOD No comment entered. Ordering Provider: YEHUDA JOSEPH RA Report Released Date/Time: Dec 26, 2024 10:39 PM Reporting Lab: [address] [address] Performing Lab: [address] [address] [facility] CBC ERYTHROCYTE DISTRIBUTIO N WIDTH [RATIO] BY AUTOMATED COUNT 13.2 11.8 - 15.1 12/28 Specimen Type: BLOOD No comment entered. Ordering Provider: YEHUDA JOSEPH RA Report Released Date/Time: Dec 26, 2024 10:39 PM Reporting Lab: [facility] [address] [facility] [address] Performing Lab: [facility] [address] [facility] [address] [facility] CBC LYMPHOCYTES /100 LEUKOCYTES IN BLOOD BY AUTOMATED COUNT 41 12/28 Specimen Type: BLOOD No comment entered. Ordering Provider: YEHUDA JOSEPH RA Report Released Date/Time: Dec 26, 2024 10:39 PM Reporting Lab: [facility] [address] [facility] [address] Performing Lab: [facility] [address] [facility] [phone] [place] [address] [facility]ISION CBC MONOCYTES/1 00 LEUKOCYTES IN BLOOD BY AUTOMATED COUNT 8 12/28 Specimen Type: BLOOD No comment entered. Ordering Provider: YEHUDA JOSEPH RA Report Released Date/Time: Dec 26, 2024 10:39 PM Reporting Lab: [facility] [address] [facility] [address] Performing Lab: [facility] [address] [place] [address] [facility] CBC NEUTROPHILS /100 LEUKOCYTES IN BLOOD BY AUTOMATED COUNT 48 12/28 Specimen Type: BLOOD No comment entered. Ordering Provider: YEHUDA JOSEPH RA Report Released Date/Time: Dec 26, 2024 10:39 PM Reporting Lab: [facility] [address] [facility] [address] Performing Lab: [facility] [address] [place] [address] [phone] CBC EOSINOPHILS /100 LEUKOCYTES IN BLOOD BY AUTOMATED COUNT 3 12/28 Specimen Type: BLOOD No comment entered. Ordering Provider: YEHUDA JOSEPH RA Report Released Date/Time: Dec 26, 2024 10:39 PM Reporting Lab: [place] [address] [facility] [address] Performing Lab: [address] [address] [facility] CBC BASOPHILS/1 00 LEUKOCYTES IN BLOOD BY AUTOMATED COUNT 0 12/28 Specimen Type: BLOOD No comment entered. Ordering Provider: YEHUDA JOSEPH RA Report Released Date/Time: Dec 26, 2024 10:39 PM Reporting Lab: [address] [address] Performing Lab: [address] [phone] [place] [address] CBC LYMPHOCYTES [#/VOLUME] IN BLOOD BY AUTOMATED COUNT 3.64 10*3/u L 0.77 - 4.50 12/28 Specimen Type: BLOOD No comment entered. Ordering Provider: YEHUDA JOSEPH RA Report Released Date/Time: Dec 26, 2024 10:39 PM Reporting Lab: [address] [address] Performing Lab: [address] [phone] [place] [address] CBC MONOCYTES [#/VOLUME] IN BLOOD BY AUTOMATED COUNT 0.73 10*3/u L 0.19 - 0.80 12/28 Specimen Type: BLOOD No comment entered. Ordering Provider: YEHUDA JOSEPH RA Report Released Date/Time: Dec 26, 2024 10:39 PM Reporting Lab: [address] [address] Performing Lab: [address] [address] [facility] CBC NEUTROPHILS [#/VOLUME] IN BLOOD BY AUTOMATED COUNT 4.31 10*3/u L 2.10 - 8.00 12/28 Specimen Type: BLOOD No comment entered. Ordering Provider: YEHUDA JOSEPH RA Report Released Date/Time: Dec 26, 2024 10:39 PM Reporting Lab: [facility] [address] [facility] [address] Performing Lab: [facility] [address] [place] [address] [facility] CBC EOSINOPHILS [#/VOLUME] IN BLOOD BY AUTOMATED COUNT 0.22 10*3/u L 0.00 - 0.60 12/28 Specimen Type: BLOOD No comment entered. Ordering Provider: YEHUDA JOSEPH RA Report Released Date/Time: Dec 26, 2024 10:39 PM Reporting Lab: [place] [address] [facility] [address] Performing Lab: [address] [address] [facility] CBC BASOPHILS [#/VOLUME] IN BLOOD BY AUTOMATED COUNT 0.03 10*3/u L 0.00 - 0.20 12/28 Specimen Type: BLOOD No comment entered. Ordering Provider: YEHUDA JOSEPH RA Report Released Date/Time: Dec 26, 2024 10:39 PM Reporting Lab: [address] [address] Performing Lab: [address] [address] [facility] GLUCOSE,BL OOD-poct (STL) GLUCOSE [MASS/VOLUM E] IN BLOOD BY AUTOMATED TEST STRIP 118 mg/dL 72 - 99 12/23 H Specimen Type: BLOOD Comment: Test Performed by: [id number] Meter #: [id number] Ordering Provider: YEHUDA JOSEPH RA Report Released Date/Time: Dec 23, 2024 03:48 PM Reporting Lab: [facility] [address] [facility] [address] Performing Lab: [facility] [address] [facility] [address] [facility] Vital Signs Combined list of inpatient and outpatient Vital Signs from Department of Defense and Veterans Affairs, ranging from 12 months to all on record, depending upon the facility. Vital Sign Value Date Comments Source SYSTOLIC BLOOD PRESSURE 151 12/23/2024 14:47:22 [facility] DIASTOLIC BLOOD PRESSURE 74 12/23/2024 14:47:22 [facility] PULSE OXIMETRY 96 % 12/23/2024 14:47:22 S Toshia [facility] WEIGHT 233 12/23/2024 14:47:[facility] BMI 28 kg/m2 12/23/2024 14:47:[facility] PAIN 0 12/23/2024 14:47:[facility] HEIGHT 76 12/23/2024 14:47:[facility] TEMPERATURE 98.6 12/23/2024 14:47:22 [facility] PULSE 75 12/23/2024 14:47:[address] [facility] RESPIRATION 18 12/23/2024 14:47:22 [facility] Encounters Combined list of: 1) Encounters from Department of Veterans Affairs facilities going backup to the last 18 months, not all VA inpatient encounters are included; 2) Encounters from the Department of Defense facilities going backup to 280 months. Location Location Details Encounter Type Encounter Number Reason For Visit Attending Provider ADM Date DC Date Status Disposition Source [facility] OFFICE O/P EST LOW 20 MIN [id number] Diagnos is: ICD-10- CM B35.1 Tinea unguium KAYLEIGH BLAND 09/13 [facility] Outpatient Encounter [id number] 02/22 [facility] [place] NAIL 6 OR MORE [id number] Diagnos is: ICD-10- CM B35.1 Tinea unguium KAYLEIGH BLAND 03/10 [facility] Outpatient Encounter [id number] 12/06 [facility] Outpatient Encounter [id number] 12/06 [facility] Outpatient Encounter [id number] YUILYA WYNN IA M 12/22 [facility] FEE [id number] Diagnos is: ICD-10- CM E11.9 Type 2 diabete s mellitu s without complic ations JAKE,DED RA M 12/23 [facility] SYNCH AUDIO-VIDE O EST SF 10 [id number] Diagnos is: ICD-10- CM E11.9 Type 2 diabete s mellitu s without complic ations JAKE,DED RA M 12/23 [facility] Outpatient Encounter [id number] 12/27 [facility] Social History Combined list of available smoking, tobacco, and other social history from Department of Defense and Veterans Affairs facilities. Social History Type Response Date Comment Sourc e Tobacco smoking status [place] VA-TOBACCO SCREEN FOLLOW-UP 12/23/2024 [facility] History of tobacco use VA-TOBACCO USE ADVICE 12/23/2024 [facility] History of tobacco use GA-TOBACCO NEVER USED OTHER TYPE 12/22/2024 [facility] History of tobacco use VA-TOBACCO FORMER USER 11/04/2021 [facility] History of tobacco use VA-TOBACCO FORMER USER 11/06/2020 [facility] History of tobacco use VA-TOBACCO QUIT 5 TO < 15 YRS 11/22/2019 [facility] History of tobacco use VA-TOBACCO NEVER USED 06/18/2018 [facility] History of tobacco use TOBACCO USER [facility] 11/05/2017 [facility]
--- OUTSIDE RECORDS SUMMARY | 2024-12-30 12:46 | XMS_ITS | Clinical Summary ---
Author Organization [facility] HealthCare Care Team Providers Care Chief Mechanical Engineer Name Role Phone Skip Wood MD Primary [...] Orientation Not on file Plan of Treatment Health Maintenance Due Date Last Done Comments Colon Cancer Screening-Colonoscopy 1952 Depression Screening 1952 Fall Risk Assessment 1950 Hepatitis C Screening 1950 Prostate Cancer Screening-PSA 1952 DTaP/Tdap/Td Vaccine (1 - Tdap) 02/11/1963 Hepatitis B Screening 02/11/1970 Pneumococcal vaccine 65+ (1 of 1 - PCV) 02/11/2002 Zoster Vaccine (1 of 2) 02/11/2002 Abdominal Aortic Aneurysm (A AA) Screen 02/11/2017 Well Visit 65+ 02/11/2017 Covid-19 Vaccine ( season) 2024 04/08/2021, 08/08/2020, 07/18/2020 Influenza Vaccine (#1) 2025 04/08/2022 Insurance [employer] MEDICARE Care Teams Chief Mechanical Engineer Relationship Specialty Start Date End Date Skip Wood MD [address] [place] [address] PCP - General Internal Medicine 07/23/22
--- OUTSIDE RECORDS SUMMARY | 2024-12-30 12:46 | XMS_ITS | Encounter Summary ---
Author Name [facility] [facility] Address [address] [place] [address] Care Team Providers Care Senior Sustainability Advisor Name Role Phone CASTILLO JOSEPH [facility] Providers: All historical and current [...] EGWP BCBSI L P Nov 29, 2017 [facility] [id number] [phone] [place] BY PATIENT MEDICARE (WNR) MEDICARE (M) PART A Jan 31, 2016 PART A [id number] [facility] BY PATIENT MEDICARE (WNR) MEDICARE (M) PART B Jan 31, 2016 PART B [id number] [phone] [facility] BY PATIENT Selected Encounter This section includes the information on record at [place] for the Encounter. Date/Time Encounter Type Encounter Description Reason Provider Source Dec 23, 2024 02:31 PM SYNCH AUDIO-VIDEO EST SF 10 PRIMARY CARE/MEDICINE ICD-10-CM E11.9 Type 2 diabetes mellitus without complications CASTILLO JOSEPH Encounter Template Text not used by [place] Assessments - Encounter Diagnoses This section includes the primary and secondary diagnoses documented for the Encounter. Date/Time Primary/Secondary Diagnosis Diagnosis Name Provider Source Dec 23, 2024 03:19 PM PRIMARY Type 2 diabetes mellitus without complications CASTILLO JOSEPH [facility] Dec 23, 2024 03:19 PM SECONDARY Coronary atherosclerosis due to lipid rich plaque CASTILLO JOSEPH [facility] Dec 23, 2024 03:19 PM SECONDARY Essential (primary) hypertension CASTILLO JOSEPH [facility] Dec 23, 2024 03:19 PM SECONDARY Hyperlipidemia, unspecified JAKECASTILLO [facility] Dec 23, 2024 03:19 PM SECONDARY Other specified peripheral vascular diseases CASTILLO JOSEPH [facility] Lab Results: +/- 30 days of the encounter This section includes the Chemistry and Hematology Lab Results on record with [place] for the patient. Radiology Reports and Pathology Reports are provided separately, in subsequent sections. Lab Results This section contains the Chemistry/Hematology Results that were resulted 30 days before or 30 daysafter the date of the Encounter. Date/Time Source Result Type Result - Unit Interpretation Reference Range Specimen Type Comment Dec 28, 2024 09:33 AM [facility] VITAMIN D, 25-HYDROXY SERUM Specimen Type: SERUM No comment entered. Ordering Provider: CASTILLO JOSEPH Report Released Date/Time: Dec 26, 2024 10:39 PM Reporting Lab: [facility] [address] [facility] [address] Performing Lab: [facility] [address] [facility] [address] VITAMIN D, 25-HYDROXY 58.7 ng/mL 30-96 Dec 28, 2024 09:33 AM [facility] LIPID PANEL (STL) PLASMA Specimen Type: PLASM A Comment: No hemolysis noted. Ordering Provider: CASTILLO JOSEPH Report Released Date/Time: Dec 26, 2024 10:39 PM Reporting Lab: [facility] [address] [facility] [address] Performing Lab: [facility] [address] [facility] [address] CHOLESTEROL 169 mg/dL 0-200 TRIGLYCERIDE 102 mg/dL 0-150 CALCULATED LDL 108 mg/dL HDL(New) 41 mg/dL >40 Dec 28, 2024 09:33 AM [facility] COMPREHENSIVE METABOLIC PANEL PLASMA Specimen Type: PLASMA Comment: No hemolysis noted. Ordering Provider: CASTILLO JOSEPH Report Released Date/Time: Dec 26, 2024 10:39 PM Reporting Lab: [facility] [address] [place] [phone] Performing Lab: [address] [address] CREATININE 1.01 mg/dL 0.7-1.3 UREA NITROGEN 12.6 [...] 79.0 >60 Dec 28, 2024 09:33 AM [facility] TSH (MA-PB) SERUM Specimen Type: SERUM No comment entered. Ordering Provider: CASTILLO JOSEPH Report Released Date/Time: Dec 26, 2024 10:39 PM Reporting Lab: [facility] [address] [facility] [address] Performing Lab: [address] [address] TSH 1.472 u[IU]/mL 0.47-5 Dec 28, 2024 09:33 AM [facility] HGA1C BLOOD Specimen Type: BLOOD No comment entered. Ordering Provider: CASTILLO JOSEPH Report Released Date/Time: Dec 26, 2024 10:39 PM Reporting Lab: [address] [address] Performing Lab: [address] [address] HGA1C 7.5 H 4.0-6.0 Dec 28, 2024 09:33 AM [facility] CBC BLOOD Specimen Type: BLOOD No comment entered. Ordering Provider: CASTILLO JOSEPH Report Released Date/Time: Dec 26, 2024 10:39 PM Reporting Lab: [address] [address] Performing Lab: [address] [address] WBC 9.0 10*3/uL 3.6-11.2 RBC 4.81 10*6/uL [...] 0.00-0. 20 Dec 23, 2024 02:45 PM [facility] GLUCOSE,BLOOD-poct (STL) BLOOD Specimen Type: BLOOD Comment: Test Performed by: [id number] Meter #: [id number] Ordering Provider: CASTILLO JOSEPH Report Released Date/Time: Dec 23, 2024 03:48 PM Reporting Lab: [facility] [address] [facility] [phone] Performing Lab: [facility] [address] [facility] [address] GLUCOSE,BLOOD-poct (STL) 118 mg/dL H 72-99 Social History: Smoking Status (Most current) and Tobacco Use (All prior to encounter date) This section includes the most current, and the historical, smoking and tobacco- related health factors from the [place] facility where the Encounter took place. Current Smoking Status This section includes the most current smoking, or tobacco-related health factor, from the [place] facility where the Encounter took place. Date/Time Current Smoking Status Comment Facil ity Dec 23, 2024 02:31 PM VA-TOBACCO USE ADVICE [facility] Tobacco Use History This section includes a history of the smoking, or tobacco-related health factors, that were collected on or before the date of the Encounter. The data comes from the [place] facility where the Encounter took place. Date/Time Smoking Status/Tobacco Use Comment F acility Dec 23, 2024 02:31 PM VA-TOBACCO USE ADVICE [facility] Dec 23, 2024 02:31 PM VA-TOBACCO USE HOSPICE AIDE NO [facility] Dec 23, 2024 02:31 PM VA-TOBACCO USE MED NO [facility] Encounter Notes: All associated encounter notes This section contains the clinical notes associated to the Encounter. Date/Time Encounter Note(s) Provider Source Dec 23, 2024 02:50 PM PRIMARY CARE NOTE: LOCAL TITLE: PRIMARY CARE PROVIDER ESTABLISHED VISIT [facility] STANDARD TITLE: PRIMARY CARE NOTE DATE OF NOTE: DEC 23, 2024@14:50 ENTRY DATE: DEC 23, 2024@14:50:59 AUTHOR: CASTILLO JOSEPH COSIGNER: URGENCY: STATUS: COMPLETED Visit conducted by synchronous video telehealth; patient verbal consent obtained. Location and emergency point of contact and/or number confirmed was notified of right to decline Telehealth services and eligibility for other options. consented to be seen via Video into the Clinic (CVT). Verified Patient's location and contact information for this appointment: [facility] [address] [facility] [address] [place] [address] A survey of the environment was conducted and all participants identified in the room and the exam door is closed. Providers: Take measures to minimize the noise outside the clinic room by ensuring the room's door is closed, and a sign is posted on the door to indicate a telehealth visit is in session. Workstation: [facility] [id number]. [facility] telemedicine HUB. [place]'s identity was confirmed with two (2) forms of identification: Full Name, full SSN, or Date of . [place] education provided and verbal consent requested to conduct Clinical Video Telehealth for this encounter and subsequent encounters. The was given the option to be seen using an in-person face to face visit if desired. informed this visit is confidential, secure and will not be recorded. Veterans questions answered. [place] verbalized understanding and consents to be seen today using Clinical Video Telehealth. This visit was conducted today by: _x_ CVT (audio/visual) Connection Patient is 74 and BLACK OR Self Identified Gender - NONE FOUND Reason for visit:Scheduled follow-up Chief Complaint: f/u, last seen 05/13/2022 History of Present Illness: Per nursing, 74 year old male. Pt is alert and ambulatory. Pt is able to make his needs known and has no complaints of pain. Pt states he has no new health concerns. States his prescriptions need refills, says he had labs in July. He was scheduled with podiatry 09/06/2024 but had to cancel, he will reschedule his appt. He has slight numbness and tingling in his feet sometimes and his feet also get red sometimes. patient Darion with him today PCP nonVA: Dr. Wood, at [facility] Problem List: 1) Coronary atherosclerosis 2) Diabetes mellitus 3) Benign essential hypertension 4) Hyperlipidemia 5) Peripheral vascular disease 6) Elevated PSA 7) Past history of procedure 8) Onychomycosis of toenails 9) Low Back Pain ([facility] [id number]) 10) Patient Overweight ([facility] [id number]) 11) Vitamin D Deficiency ([facility] [id number]) 12) Cannabis dependence Immunization: ADMINISTERED Immunization Series Date Facility Reaction Info COVID-19 (MODERNA), MRNA, LNP-S,* 4 11/05/2021 [facility] <C> COVID-19 (PFIZER), MRNA, LNP-S, * 3 04/08/2021 [facility] COVID-19 (PFIZER), MRNA, LNP-S, * 2 08/08/2020 [facility] <C> COVID-19 (PFIZER), MRNA, LNP-S, * 1 07/18/2020 [facility]* <C> INFLUENZA, UNSPECIFIED FORMULATI* C 04/08/2022 [facility]* CONTRAINDICATED No data available REFUSED ======= Immunization Date Facility Info COVID-19 (MODERNA), MRNA, LNP-S,* 05/13/2022 [facility] <I> COVID-19 (MODERNA), MRNA, LNP-S,* 12/22/2024 No Site <I> COVID-19 (NOVAVAX), SUBUNIT, RS-* 12/22/2024 No Site <I> COVID-19 (PFIZER), MRNA, LNP-S, * 12/22/2024 No Site <I> PNEUMOCOCCAL CONJUGATE, UNSPECIF* 12/22/2024 No Site <I> PNEUMOCOCCAL CONJUGATE, UNSPECIF* 05/13/2022 [facility] <I> TDAP 12/22/2024 No Site <I> TDAP 05/13/2022 [facility] <I> ZOSTER RECOMBINANT 05/13/2022 [facility] <I> <C> See the Detailed Immunizations Health Summary Component[DIM] for Comments <I> See the Detailed Immunizations Health Summary Component[DIM] for Additional Information * Value is truncated; see the Detailed Immunizations Health Summary Component[DIM] for complete text Social History: , quit smoking in 2013 when he had quadruple bypass surgery, no drinking, h/o MJ use, served in the [employer] Medication Review: The essential med list for review which includes the patient's active VA prescriptions and if applicable, remote VA prescriptions, non-VA prescriptions, and discontinued VA prescriptions within the last 90 days and known allergies including local and remote allergies have been reviewed. Allergies:Patient has answered NKA Active and Recently Outpatient Medications (excluding Supplies): Active Outpatient Medications Status 1) ASPIRIN 325MG EC TAB TAKE ONE TABLET BY MOUTH ONCE A DAY ACTIVE TAKE WITH FOOD. Indication: FOR CARDIOVASCULAR DISEASE 2) CARVEDILOL 12.5MG TAB TAKE ONE-HALF TABLET BY MOUTH TWICE A ACTIVE DAY FOR HEART. TAKE WITH FOOD. 3) CHOLECALCIF 50MCG (D3-2,000UNIT) TAB TAKE ONE TABLET BY ACTIVE MOUTH ONCE A DAY FOR VITAMIN D DEFICIENCY. 4) GLIPIZIDE 5MG TAB TAKE ONE-HALF TABLET BY MOUTH TWO TIMES A ACTIVE DAY BEFORE MEALS FOR DIABETES. TAKE 30 MINUTES BEFORE EATING. Inactive Outpatient Medications Status 1) CILOSTAZOL 50MG TAB TAKE ONE TABLET BY MOUTH TWICE A DAY TAKE 30 MINUTES BEFORE OR AT LEAST 2 HOURS AFTER FOOD. DO NOT TAKE WITH GRAPEFRUIT JUICE. needs ran out this week still takes Atorvastatin and Metformin 5 Total Medications Review of Systems: GENERAL: no fevers, chills, night sweats, fatigue HEENT: No visual changes, No hearing changes, rhinorrhea or sore throat. CV: no cp, owens, edema, claudication or palpitation RESP: no sob, cough, wheezes or hemoptysis GI: no indigestion, nausea/vomiting, abdominal pain, constipation, diarrhea, blood per rectum : no hematuria, dysuria, frequency, nocturia MUS: no joint pain Neuro: no headaches, lightheadedness, dizziness, numbness. No weakness or gait difficulty. Psych: mood has been good Physical Exam VITALS (most recent, as listed in the electronic record): B/P: 151/74 (12/23/2024 14:47) Pulse: 75 (12/23/2024 14:47) Temperature: 98.6 F [37.0 C] (12/23/2024 14:47) Weight: 233 lb [105.69 kg] (12/23/2024 14:47) Height: 76 in [193.0 cm] (12/23/2024 14:47) BMI: 28.4 Pain: 0 (12/23/2024 14:47) (0-10 scale) BP rechecked 128/78 General appearance: cooperative, well-nourished, in no distress HEENT: sclera/conjunctiva clear Cardiovascular: RRR, no murmur, no gallop Respiratory: CTA, no wheezes, crackles or rhonchi ABD/GI: normal contour, bs + M/S: normal gait and posture Psych: normal affect Neuro: Alert and oriented x 3 Skin: normal color and texture Data Review: No HEMOGLOBIN A1C EO data found Lipid Panel: No LIPID PANEL EO data found CMP: No COMPREHENSIVE METABOLIC PANEL EO data found CBC: No CBC EO data found PSA: No PSA EO data found TSH: No TSH (1YR) EO data found UA: No URINALYSIS EO data found Vitamin D: No VITAMIN D EO data found Micral/Creat Profile: No data available Result: Acceptable Follow-up Action: agrees to labs next week Data results reviewed with patient and/or caregiver. Assessment/Plan: # Coronary atherosclerosis with hx of CABG - continues Atorvastatin, Carvedilol and ASA # Diabetes mellitus - BS this morning 156, A1C has been managed per nonva provider per patient; states he continues to take Metformin - A1C ordered - encouraged a low carb/sweet diet and exercise # Benign essential hypertension - BP at goal today, nonva provider has been managing - 2gm Na/no added salt diet and exercise # Hyperlipidemia - continues Atorvastatin - lipids with labs - low fat/chol diet and exercise # HM - labs ordered; CRS colonoscopy May 05, 2024 at [facility] in [place], normal per vet eye exam at [facility] 05/2024 wants to continue with nonva provider. RTC: 1 year and prn Time spent on date of visit including face to face time, data review, and chartin minutes CLINICAL REMINDERS COMPLETED Tobacco Use Follow-Up - AT,DE,M,N,P,PH,PS,RT,S: Patient was advised to stop smoking and/or using other tobacco products. Advised patient that a combination of behavioral counseling and FDA-approved cessation medications is the most effective way to ensure their success in stopping to smoke and/or using other tobacco products. The patient was not interested in additional information about behavioral counseling and other support strategies discussed. Informed patient that medications can help with cravings and withdrawal symptoms, and they greatly increase the chances of successfully stopping your tobacco use. The patient was not interested in a prescription for tobacco cessation medications. Alcohol Use Screen (AUDIT-C) - V: Alcohol Screen: SCREEN FOR ALCOHOL (AUDIT-C) An alcohol screening test (AUDIT-C) was negative (score=0). 1. How often did you have a drink containing alcohol in the past year? Consider a drink to be a 12 ounce can or bottle of regular beer, 8 ounces of malt liquor, a 5 ounce glass of table wine, or a 1.5 ounce shot of liquor (like scotch, gin, or vodka). Never 2. How many drinks containing alcohol did you have on a typical day when you were drinking in the past year? Response not required due to responses to other questions. 3. How often did you have six or more drinks on one occasion in the past year? Response not required due to responses to other questions. Follow Up Colonoscopy - L,N,P,PH: Colonoscopy is due based on information available to this reminder. Patient has arranged or is choosing to arrange a Colonoscopy independent of and w/out assistance from this [facility]. /nicholas/ CASTILLO JOSEPH MSN AGNP-C [facility]/CCC NURSE PRACTITIONER Signed: 12/27/2024 08:05 CASTILLO JOSEPH [facility]
== END 2024-12-30 12:42 | disposition home or self-care (01) ==
PROVIDERS: PCP Internal Medicine; Visit Provider Radiology Radiation Oncology
DX: Z51.0 Encounter for antineoplastic radiation therapy (principal); C61 Malignant neoplasm of prostate; Z19.1 Hormone sensitive malignancy status
CPT/HCPCS: 78815; A9596